=== PATIENT | male | born 1940 | race Caucasian/White ===

== ENCOUNTER → 2017-05-12 | Outpatient (CLI) | payer OTHER, MEDICARE | LOC: BHLMT 13:15 | PROVIDERS: ATTEND Internal Medicine Interventional Cardiology | DX: I25.10 Atherosclerotic heart disease of native coronary artery without angina pectoris (principal); I10 Essential (primary) hypertension; I35.0 Nonrheumatic aortic (valve) stenosis | CPT/HCPCS: 93005-PO ==

== ENCOUNTER 2017-08-21 13:02 | Day surgery (SDC) | payer OTHER, MEDICARE ==
[2017-08-21] MEDS ORDERED: diphenhydrAMINE 25 MG CAP PO ONE ×2 (13:17→13:46)
[2017-08-21] MEDS ORDERED: DIAZEPAM 5 MG TAB PO ONE (13:17)
[2017-08-21] MEDS ORDERED: FAMOTIDINE 20 MG TAB PO ONE (13:17)
[2017-08-21] MEDS ORDERED: ASPIRIN EC 325 MG TAB PO ONE ×2 (13:17→13:46)
[2017-08-21] MEDS ORDERED: NS 1,000 ML IV ONE (13:17)
[2017-08-21 13:46] LABS: % IMMATURE GRANULYOCYTES 0.3 % (0.0-1.1); ABSOLUTE IMMATURE GRANULOCYTES 0.01 10^3/uL (0.00-0.10); ADD DIFF? NO; ADD MORPH? NO; ADD SCAN? NO; ATYPICAL LYMPHOCYTE FLAG 30 (0-99); FRAGMENT RBC FLAG 0 (0-99); HEMATOCRIT 42.1 % (40.0-51.0); HEMOGLOBIN 14.3 g/dL (13.7-17.5); LEFT SHIFT FLG 0 (0-99); LIPEMIA HEMOLYSIS FLAG 90 (0-99); MEAN CELL HEMOGLOBIN 30.4 pg (27.9-34.1); MEAN CELL VOLUME 89.6 fL (81.5-99.8); MEAN PLATELET VOLUME 9.2 fL (8.7-11.7); PLATELET CLUMPS FLAG 0 (0-99); PLATELET COUNT 145 10^3/uL (150-400); RED CELL DISTRIBUTION WIDTH 12.9 % (11.5-15.2)
[2017-08-21] MEDS ORDERED: FAMOTIDINE 20 MG TAB ONE (13:46)
[2017-08-21] MEDS ORDERED: DIAZEPAM 5 MG TAB ONE (13:46)
[2017-08-21 13:55] LABS: INR 0.98 (0.83-1.16); PROTIME(PATIENT) 12.9 SEC (12.0-15.0)
--- NOTE | 2017-08-21 14:05 | CPEKG ---
Heart Rate: 77 RR Interval: 779 P-R Interval: 152 QRSD Interval: 100 QT Interval: 436 QTC Interval: 494 P [place]: 63 QRS [place]: -12 T Wave [place]: 24 EKG Severity - ABNORMAL ECG - EKG Impression: SINUS RHYTHM EKG Impression: MULTIPLE ATRIAL PREMATURE COMPLEXES EKG Impression: BORDERLINE PROLONGED QT INTERVAL Electronically Signed By: Hever Lyn 21-Aug-2017 18:23:24
[2017-08-21 14:07] LABS: ANION GAP 12 mEq/L (8-16); CARBON DIOXIDE 25 mEq/l (22-31); CHLORIDE 103 mEq/L (97-110); CHOLESTEROL 156 mg/dL (140-220); CHOLESTEROL/HDL RATIO 2.52 RATIO (1.00-4.97); GLOMERULAR FILTRATION RATE > 60; GLUCOSE 109 mg/dL (70-100); HIGH DENSITY LIPOPROTEIN 62 mg/dL (40-65); LDL/HDL RATIO 0.92 RATIO (1.00-3.64); LOW DENSITY LIPOPROTEIN 57 mg/dL (80-100); MAGNESIUM 1.8 mg/dL (1.6-2.3); NON-HIGH DENSITY LIPOPROTEIN 94 mg/dL (90-129); SODIUM 140 mEq/L (134-144); TRIGLYCERIDE 186 mg/dL (40-150); VERY LOW DENSITY LIPOPROTEINS 37 mg/dL (8-25)
[2017-08-21] MEDS ORDERED: LIDOCAINE 1% 300 MG/30 ML SDV ONE (14:34)
[2017-08-21] MEDS ORDERED: MIDAZOLAM 2 MG/2 ML VIAL ONE ×3 (14:34→15:05)
[2017-08-21] MEDS ORDERED: fentaNYL 100 MCG/2 ML INJ ONE (14:34)
--- NOTE | 2017-08-21 14:34 | PDHPUP ---
History & Physical Update H&P update statement: This history and physical update is based on an assessment of the patient which was completed after admission or registration (within 24 hours), but prior to the surgery/procedure. H&P update: H&P reviewed & patient examined, no change in patient's condition since H&P completed
[2017-08-21] MEDS ORDERED: IOPAMIDOL (ISOVUE-370) 150 ML BTL IV ONE (14:35)
--- NOTE | 2017-08-21 14:36 | PDPROPOC ---
Sedation Plan of Care Sedation Plan of Care: vital signs stable ASA Classification: ASA 1 Planned drugs: fentanyl, midazolam Mallampati Score: Class 1 Mallampati Reference Image: Patient passed 3-3-2 rule?: Yes
[2017-08-21] MEDS ORDERED: HYDROCODONE/APAP 5/325 TAB PO PRN (15:45)
[2017-08-21] MEDS ORDERED: ATROPINE SULFATE 1 MG/10 ML SYR IVP PRN (15:45)
[2017-08-21] MEDS ORDERED: NITROGLYCERIN 0.4 MG BTL SL PRN (15:45)
[2017-08-21] MEDS ORDERED: OXYCODONE/APAP 5/325 TAB PO PRN (15:45)
[2017-08-21] MEDS ORDERED: ONDANSETRON 4 MG/2 ML VIAL IVP PRN (15:45)
--- NOTE | 2017-08-21 15:53 | PDDXCAT ---
Diagnostic Cath Note - . 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 LAD: Mid-LAD with 60-70% lesion immediately proximal to LAD-Diagonal bifurcation. Large first diagonal branch with patent stent proximally. LCX: Proximal to mid-circumflex with patent stent; otherwise mild irregularities. 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 LVEF: Stenotic aortic valve not crossed. - Findings-Right Heart Catheterization RA: 10 mmHg RV: 38/8 mmHg PA: 36/20/24 mmHg O2 sat 70.5% PAOP: 12 mmHg AO: 128/70/92 mmHg O2 sat 94.5% Estimated blood loss: <50ml Closure method: Angioseal Assessment: 1) Known moderate to severe aortic stenosis by echo. 2) CAD as described above. 3) Borderline right heart pressures. Plan: Will present at our weekly case conference for consideration of aortic valve replacement and coronary bypass grafting.
== END 2017-08-21 18:37 | disposition home or self-care (01) ==
LOC: FCATH 13:02
PROVIDERS: ATTEND Internal Medicine Interventional Cardiology
DX: I35.0 Nonrheumatic aortic (valve) stenosis (principal); I25.10 Atherosclerotic heart disease of native coronary artery without angina pectoris; I10 Essential (primary) hypertension; E78.00 Pure hypercholesterolemia, unspecified
CPT/HCPCS: 93005; 93456; C1769; C1760; J1644; J2250; J3010; Q9967

== ENCOUNTER → 2017-09-17 | Outpatient (CLI) | payer OTHER, MEDICARE | LOC: FCPNEURO 21:30 | PROVIDERS: ATTEND Psychiatry & Neurology Sleep Medicine | DX: G47.31 Primary central sleep apnea (principal); G47.33 Obstructive sleep apnea (adult) (pediatric); G47.61 Periodic limb movement disorder ==

== ENCOUNTER → 2017-10-21 | Outpatient (CLI) | payer OTHER, MEDICARE | LOC: BHFA 16:15 | PROVIDERS: ATTEND Internal Medicine Cardiovascular Disease | DX: I35.0 Nonrheumatic aortic (valve) stenosis (principal) ==

== ENCOUNTER 2017-10-30 12:31 | Day surgery (SDC) | payer OTHER, MEDICARE ==
[2017-10-30] MEDS ORDERED: fentaNYL 100 MCG/2 ML INJ IVP ONE (12:34)
[2017-10-30] MEDS ORDERED: BENZOCAINE UNIT DOSE SPRAY HURRICAINE MM ONE (12:34)
[2017-10-30] MEDS ORDERED: NS 500 ML IV ONE (12:34)
[2017-10-30] MEDS ORDERED: MIDAZOLAM 2 MG/2 ML VIAL IVP ONE (12:34)
[2017-10-30] MEDS ORDERED: PROPOFOL 200 MG/20 ML VIAL ONE ×2 (13:39)
[2017-10-30] MEDS ORDERED: LIDOCAINE 1% 5 ML SDV ONE (13:40)
[2017-10-30] MEDS ORDERED: SUCCINYLCHOLINE CHLORIDE 200 MG/10 ML SYR IVP ONE (13:40)
--- NOTE | 2017-10-30 14:25 | POSTANESTH ---
Post Anesthetic Evaluation Cardiovascular Status: Similar to Pre-Op Cond Respiratory Status: Similar to Pre-op Cond. Level of Consciousness/Mental Status: Mildly Sleepy, Arousable Pain Control: Adequate, Prn Tx Ordered Nausea/Vomiting Control: Adequate, Prn Tx Ordered Complications Possibly Related to Anesthesia: None Noted
--- NOTE | 2017-10-30 14:25 | PDANEPAE ---
ANE Past Medical History - Cardiovascular History Hx Hypertension: Yes Hx Arrhythmias: Yes Hx Chest Pain: Yes Hx Coronary Artery / Peripheral Vascular Disease: Yes Hx CHF / Valvular Disease: Yes Cardiovascular History Comment: Aortic stenosis - Pulmonary History Hx Sleep Apnea: Yes ANE Review of Systems Review of Systems: ANE Patient History - Allergies Allergies/Adverse Reactions: No Known Allergies Allergy (Unverified 08/15/17 10:43) - Home Medications Home Medications: Aspirin [Aspirin 81mg (*)] 81 mg PO DAILY 08/15/17 [Last Taken Unknown] Atorvastatin Calcium [Lipitor 40 mg (*)] 80 mg PO DAILY 08/15/17 [Last Taken Unknown] Doxazosin Mesylate [Cardura 4 MG (*)] 8 mg PO DAILY 08/15/17 [Last Taken Unknown ] Ezetimibe [Zetia 10 MG (*)] 10 mg PO DAILY 08/15/17 [Last Taken Unknown] Hydrochlorothiazide [HCTZ (*)] 25 mg PO DAILY 08/15/17 [Last Taken Unknown] Hydrocodone/APAP 5/325 [[place] 5/325 (*)] 1 tab PO TID PRN 08/15/17 [Last Taken Unknown] Losartan Potassium [Cozaar 50 mg (*)] 100 mg PO DAILY 08/15/17 [Last Taken Unknown] Multivitamins [Multivitamin (*)] 1 each PO DAILY 08/15/17 [Last Taken Unknown] Niacin [Niacin 500 mg (*)] 500 mg PO DAILY 08/15/17 [Last Taken Unknown] Omeprazole [Prilosec 20 mg] 20 mg PO DAILY 08/15/17 [Last Taken Unknown] Potassium Cl [Klor-Con 10 meq (RX)] 10 meq PO DAILY 08/15/17 [Last Taken Unknown ] Sildenafil Citrate [Viagra 50 MG (*)] 100 mg PO DAILY PRN 08/15/17 [Last Taken Unknown] Varenicline Tartrate [Chantix 1MG (*)] 1 mg PO BID 08/15/17 [Last Taken Unknown] amLODIPine BESYLATE [Norvasc 5 mg (*)] 5 mg PO DAILY 08/15/17 [Last Taken Unknown] - Smoking Hx Smoking Status: Current every day smoker ANE Labs/Vital Signs - Vital Signs Height: 178 cm Weight: 108.9 kg ANE Physical Exam - Airway Neck exam: decreased ROM Mallampati Score: Class 3 Mouth exam: normal dental/mouth exam - Pulmonary Pulmonary: reduced air movement - Cardiovascular Cardiovascular: regular rate and rhythym - ASA Status ASA Status: III ANE Anesthesia Plan Anesthesia Plan: GA with mask, MAC Urgent/Emergent Case: Lokesh warren completed preop but documented later for safe timely pt care
--- NOTE | 2017-10-30 16:31 | ECHO ---
[email or web address] [place] [id number] Main: [phone] Fax: Transesophageal Echocardiography Name: FABIÁN AYUOB MR#: [id number] Study Date: 10/30/2017 Study Time: 12:52 PM Date of : 1940 Age: 77 year(s) Height: ( ) Weight: ( ) BSA: Gender: Male Examination: LISA Indication: Eval aortic valve Image Quality: Contrast: Requested by: Tisha Blanca Heart Rate: Rhythm: BP: / Procedure Staff Editor [employer]: Delmy Monge Reading Physician: Rosario Nguyen Requesting Provider: Benito García LISA Exam Details Conclusions: Normal size left ventricle. Normal global systolic LV function. An agitated saline study was performed and was negative for intracardiac shunting. No thrombus in left appendage. There is no mitral valve regurgitation. No mitral stenosis is present. The aortic valve is tri-leaflet. Moderate-severe aortic valve stenosis. Trivial to mild aortic valve regurgitation. AV max PG is 54mmHG. AV mean PG is 35mmHG. ABELARDO by the continuity equation is 0.82 cm2. ABELARDO by planimetry is 1.06cm2. There is Grade 2 aorta plaque. Measurements: Chambers Valvular Assessment AV/MV Valvular Assessment TV/PV Normal Normal Normal Name Value Range Name Value Range Name Value Range LVOTd 2.0 cm 2.0 cm mm AV meanP mmHg ( - ) LVOT Vmax: 0.83 m/s (0.7 m/s-1.1 m/s) ABELARDO (VTI): 0.8 cm ( - ) ABELARDO (2D): 1.3 cm2 ( - ) MV E Vmax: 0.78 m/s ( - ) MV A Vmax: 1.20 m/s ( - ) MV E/A: 0.65 ( - ) Patient: FABIÁN AYOUB Study Date: 10/30/2017 Page 1 of 2 12:52 PM MV meanP mmHg ( - ) MVA (Vmax): 3.0 m/s ( - ) Additional Measurements: Valvular Assessment AV/MV Name Value MV VTI: 24.40 cm Findings: Left Ventricle: Normal size left ventricle. Normal global systolic LV function. Left Atrium: An agitated saline study was performed and was negative for intracardiac shunting. Left Atrial Appendage: No thrombus in left appendage. Mitral Valve: Moderate mitral valve leaflet calcification is present. There is no mitral valve regurgitation. No mitral stenosis is present. Aortic Valve: The aortic valve is tri-leaflet. Moderate-severe aortic valve stenosis. Trivial to mild aortic valve regurgitation. AV max PG is 54mmHG. AV mean PG is 35mmHG. ABELARDO by the continuity equation is 0.82 cm2. ABELARDO by planimetry is 1.06cm2. Tricuspid Valve: The tricuspid valve appears normal. Aorta: There is Grade 2 aorta plaque. l1n (No Signature Object) Patient: FABIÁN AYOUB Study Date: 10/30/2017 Page 2 of 2 12:52 PM [id number]
== END 2017-10-30 15:29 | disposition home or self-care (01) ==
LOC: FCATH 12:31
PROVIDERS: ATTEND Internal Medicine Gastroenterology
PROC: B245ZZ4 Ultrasonography of Left Heart, Transesophageal (ICD-10-PCS; principal; 2017-10-30)
DX: I35.0 Nonrheumatic aortic (valve) stenosis (principal); I25.10 Atherosclerotic heart disease of native coronary artery without angina pectoris; I10 Essential (primary) hypertension; E78.2 Mixed hyperlipidemia; E66.9 Obesity, unspecified; Z68.34 Body mass index [BMI] 34.0-34.9, adult; G47.33 Obstructive sleep apnea (adult) (pediatric); M48.061 Spinal stenosis, lumbar region without neurogenic claudication; F17.200 Nicotine dependence, unspecified, uncomplicated; F11.20 Opioid dependence, uncomplicated; Z85.46 Personal history of malignant neoplasm of prostate; Z95.5 Presence of coronary angioplasty implant and graft; Z96.651 Presence of right artificial knee joint; Z98.1 Arthrodesis status
CPT/HCPCS: J0330; J2704

== ENCOUNTER 2017-11-03 07:49 | Observation (INO) | payer OTHER, MEDICARE ==
[2017-11-03] MEDS ORDERED: DIAZEPAM 5 MG TAB PO ONE (07:55)
[2017-11-03] MEDS ORDERED: ASPIRIN EC 325 MG TAB PO ONE ×2 (07:55→08:21)
[2017-11-03] MEDS ORDERED: diphenhydrAMINE 25 MG CAP PO ONE ×2 (07:55→08:21)
[2017-11-03] MEDS ORDERED: FAMOTIDINE 20 MG TAB PO ONE (07:55)
[2017-11-03] MEDS ORDERED: NS 1,000 ML IV ONE (07:55)
--- NOTE | 2017-11-03 08:17 | CPEKG ---
Heart Rate: 79 RR Interval: 759 P-R Interval: 148 QRSD Interval: 92 QT Interval: 392 QTC Interval: 450 P [place]: 40 QRS [place]: -13 T Wave [place]: 38 EKG Severity - OTHERWISE NORMAL ECG - EKG Impression: SINUS ARRHYTHMIA, RATE 68-94 Electronically Signed By: Yobani Michelle 03-Nov-2017 15:31:49
[2017-11-03] MEDS ORDERED: FAMOTIDINE 20 MG TAB ONE (08:21)
[2017-11-03] MEDS ORDERED: DIAZEPAM 5 MG TAB ONE (08:22)
[2017-11-03 08:38] LABS: PLATELET COUNT 166 10^3/uL (150-400)
[2017-11-03 08:48] LABS: INR 0.96 (0.83-1.16)
--- NOTE | 2017-11-03 09:18 | PDPROPOC ---
Sedation Plan of Care Sedation Plan of Care: mental status noted, patient educated of risks, benefits , alternatives, patient can tolerate sedation ASA Classification: ASA 2 Planned drugs: fentanyl, midazolam Mallampati Score: Class 2 Mallampati Reference Image: Patient passed 3-3-2 rule?: Yes
[2017-11-03] MEDS ORDERED: CLOPIDOGREL BISULFATE 75 MG TAB PO ONE (09:30)
[2017-11-03] MEDS ORDERED: LIDOCAINE 1% 300 MG/30 ML SDV ONE (09:31)
[2017-11-03] MEDS ORDERED: fentaNYL 100 MCG/2 ML INJ ONE (09:31)
[2017-11-03] MEDS ORDERED: MIDAZOLAM 2 MG/2 ML VIAL ONE ×2 (09:32)
[2017-11-03] MEDS ORDERED: IOPAMIDOL (ISOVUE-370) 150 ML BTL IV ONE (09:32)
[2017-11-03] MEDS ORDERED: BIVALIRUDIN 250 MG/5 ML VIAL IV ONE (09:37)
[2017-11-03] MEDS ORDERED: NITROGLYCERIN 1,500 MCG/15 ML VIAL MISC ONE (10:09)
[2017-11-03] MEDS ORDERED: TEMAZEPAM 15 MG CAP PO PRN (10:53)
[2017-11-03] MEDS ORDERED: ONDANSETRON 4 MG/2 ML VIAL IVP PRN (10:53)
[2017-11-03] MEDS ORDERED: OXYCODONE/APAP 5/325 TAB PO PRN (10:53)
[2017-11-03] MEDS ORDERED: ATROPINE SULFATE 1 MG/10 ML SYR IVP PRN (10:53)
[2017-11-03] MEDS ORDERED: LORazepam 2 MG/ML INJ IVP PRN (10:53)
[2017-11-03] MEDS ORDERED: SILDENAFIL CITRATE 50 MG TAB PO PRN (10:56)
--- NOTE | 2017-11-03 11:23 | CPIP ---
[f rep st] INVASIVE CARDIAC PROCEDURE DATE OF PROCEDURE: 11/03/2017 INDICATION FOR PROCEDURE: Coronary artery disease, pre TAVR workup. PROCEDURE: 1. Nonselective left groin sheathogram. 2. Left coronary artery angiography. 3. Percutaneous coronary intervention of proximal left anterior descending artery utilizing Synergy 3.5 x 12 mm drug-eluting stent. BRIEF HISTORY: This is a 77-year-old male with history of severe aortic stenosis, coronary artery di sease. The patient had been evaluated by Dr. Everett for possible CABG/open AVR, but due to multiple c omorbid issues, mainly being obesity and chronic lung disease, the patient was deemed to be a suitabl e candidate for TAVR. After discussion with the patient, we decided to proceed with PCI of his proxi mal LAD with plans for TAVR in the near future. DESCRIPTION OF PROCEDURE: The patient was brought to [facility] where the left groin was prepped and draped in a sterile fashion. Using lidocaine, a short 6-[place] sheath was placed in the left femoral arter y, verified angiographically. Through this 6-[place] sheath, an EBU 3.5 guide catheter was advanced. The patient had been administered 600 mg of Plavix p.o. prior to the case as well as started on an A ngiomax bolus and drip. The left coronary artery revealed a high-grade 70% proximal lesion going int o a healthy LAD. There was a large diagonal artery also coming off distal to the lesion which had be en extensively stented, which was widely patent. There was a stent to the proximal left circumflex a rtery, which was widely patent. The mid left circumflex artery distal to the stent had 40% tubular d isease but no high-grade obstruction. The RCA from prior angiograms, had been known to be a partiall y recanalized DOLLY OPERATOR. There were collaterals coming off the left coronary artery feeding the distal RPD A. This is a codominant circulation. At this time, the Choice PT wire was placed down the LAD. Pre dilatation commenced with a 3.0 x 12 compliant balloon at 10 atmospheres. After this was performed, we then proceeded with stenting of this vessel with 3.5 x 12 mm Synergy stent. This deployed just be fore the bifurcation of the diagonal artery and the LAD and deployed at 12 atmospheres. It was then post dilated with a 3.5 x 8 noncompliant balloon at 15 atmospheres. After this was performed, angiog haley was obtained and showed excellent patency of the stented area. There was no impingement on the d iagonal artery and this can be successfully rewired if needed to be. At this time, this was verified in orthogonal views. The wire was removed. The guide catheter was removed over an 0.035 wire. The left groin was sutured in place. Patient tolerated the procedure well with no complications. IMPRESSION: Successful percutaneous coronary intervention of high-grade proximal left anterior desce nding artery disease with Synergy 3.5 x 12 stent. PLAN: The patient will have his sheath discontinued in 2 hours time. He will obtain CTs of the ches t, abdomen, pelvis, as well as carotid ultrasound in anticipation for TAVR in the next 2 weeks. /[id number]/MODL
--- NOTE | 2017-11-03 15:58 | ASMTCMCOM ---
CM Note CM Note Notes: 11/03/2017 Case Management Note Reviewed chart. Pt was admitted for PCI of proximal LAD to prepare for possible future TAVR. There are no PT or OT evals ordered at this time. Case Management d/c poc: anticipating home independent with follow up as directed. Case Management to follow for further d/c needs. Date Signed: 11/03/2017 03:58 PM Electronically Signed By:Jennifer Christensen RN
[2017-11-03] MEDS: HYDROCODONE/APAP 5/325 TAB PO PRN ×2 (16:09→18:05)
[2017-11-03] MEDS ORDERED: IOPAMIDOL (ISOVUE 370) 100 ML BTL IV ONE (17:12)
[2017-11-04 04:23] LABS: PLATELET COUNT 156 10^3/uL (150-400)
[2017-11-04 07:36] VITALS: BP 124/67; PULSE 79; RESP 16; TEMP 97.9; O2SAT 90
[2017-11-04] MEDS: HYDROCODONE/APAP 5/325 TAB PO PRN (07:51)
--- NOTE | 2017-11-04 08:01 | PDCARPN ---
Cardiology Progress Note Chief Complaint: SOB Assessment/Plan: Assessment: s/p PCI severe Plan: 11/04/17 07:58 Doing well d/c home today f/u in 1 week d/c on plavix plan for TAVR on 11/17 Subjective: doing well Time Spent With Patient: 25 min Objective: Vital Signs (8 Hrs) Temp Pulse Resp BP Pulse Ox 11/04/17 07:33 36.6 C 79 16 124/67 H 90 L 11/04/17 03:45 36.9 C 74 13 151/77 H 91 L Intake/Output (24 Hrs) 11/03/17 11/04/17 11/05/17 05:59 05:59 05:59 Intake Total 1110 Output Total 1895 Balance -785 Intake: Oral (ml) 460 IV Intake (ml) 650 Output: Urine (ml) 189 Urinal 189 Other: Weight 106.6 kg Result Diagrams: 11/04/17 03:42 11/04/17 03:42 - Physical Exam Constitutional: healthy appearing Eyes: PERRL Ears, Nose, Mouth, Throat: moist mucous membranes Cardiovascular: regular rate and rhythm, systolic murmur Peripheral Pulses: 1+: femoral (R), femoral (L) Respiratory: clear to auscultate bilat Gastrointestinal: normoactive bowel sounds Genitourinary: no suprapubic tenderness Skin: no rashes Musculoskeletal: no muscular tenderness Neurologic: AAOx3 Psychiatric: cooperative Lymph, Heme, Immunologic: no lymphadenopathy ICD10 Worksheet Patient Problems: Problems Problem Status Onset Aortic stenosis Acute CAD (coronary artery disease) Acute - ICD10 Problem Qualifiers (1) Aortic stenosis Qualifiers: Cardiac valve disease etiology: nonrheumatic Qualified Code(s): I35.0 - Nonrheumatic aortic (valve) stenosis (2) CAD (coronary artery disease) Qualifiers: Coronary Disease-Associated Artery/Lesion type: [place] artery Resighini vs. transplanted heart: [place]hoe heart Associated angina: with stable angina Qualified Code(s): I25.118 - Atherosclerotic heart disease of [place] coronary artery with other forms of angina pectoris
--- NOTE | 2017-11-04 08:22 | GDS ---
[f rep st] DISCHARGE SUMMARY DISCHARGE DIAGNOSES: Coronary artery disease, aortic stenosis. HOSPITAL COURSE: Briefly, this is a 77-year-old male with history of COPD, morbid obesity, severe ao rtic stenosis, and coronary artery disease, who underwent elective PCI to the proximal LAD with a Syn ergy 3.5 x 12 mm drug-eluting stent. The patient tolerated the procedure well with no issues. The p jaelyn had been evaluated by Dr. Jackson Everett from CT Surgery prior to this intervention and was deeme d to be an at least intermediate if not high-risk candidate for open heart AVR/CABG. The decision wa s made to proceed with PCI and eventual TAVR for the patient in the next 2 weeks[address] The patient had CT As performed of the chest, abdomen, and pelvis as well as carotid ultrasound. The patient will be di scharged home this morning with his home medications including a new prescription for Plavix. He ming l follow up with me in the office in 1 week's time as well as follow up with a second CT surgery cons ult. If deemed to be suitable for TAVR, we will proceed with this procedure within the next 2-3 week s. I have explained this to the patient. The patient is willing to follow up with the office visit in the upcoming week. /[id number]/MODL
[2017-11-04] MEDS ORDERED: NIACIN 500 MG TAB PO SCH (09:00)
[2017-11-04] MEDS ORDERED: POTASSIUM CL 10 MEQ TAB PO SCH (09:00)
[2017-11-04] MEDS ORDERED: MULTIVITAMINS 1 EACH TAB PO SCH (09:00)
[2017-11-04] MEDS ORDERED: METOPROLOL SUCCINATE XR 50 MG TAB PO SCH (09:00)
[2017-11-04] MEDS ORDERED: LOSARTAN POTASSIUM 50 MG TAB PO SCH (09:00)
[2017-11-04] MEDS ORDERED: ASPIRIN 81 MG CHEWABLE TAB PO SCH (09:00)
[2017-11-04] MEDS ORDERED: PANTOPRAZOLE SODIUM 40 MG TAB PO SCH (09:00)
[2017-11-04] MEDS ORDERED: EZETIMIBE 10 MG TAB PO SCH (09:00)
[2017-11-04] MEDS ORDERED: NON-FORMULARY NEW DRUG (Omeprazole [Prilosec 20 Mg] 20 MG) PO SCH (09:00)
[2017-11-04] MEDS ORDERED: DOXAZOSIN MESYLATE 4 MG TAB PO SCH (09:00)
[2017-11-04] MEDS ORDERED: CLOPIDOGREL BISULFATE 75 MG TAB PO SCH (09:00)
[2017-11-04] MEDS ORDERED: ATORVASTATIN CALCIUM 40 MG TAB PO SCH (09:00)
--- NOTE | 2017-11-04 09:58 | ASMTLACE ---
LACE Length of stay for Answers: Less than 1 day current admission Acuity / Level of Answers: No Care: Did the patient have an inpatient admission? Comorbidities - select Answers: Other all that apply # of Emergency department Answers: 0 visits in the last 6 months Score: 1 Date Signed: 11/04/2017 09:56 AM Electronically Signed By:Jennifer Christensen RN
--- NOTE | 2017-11-04 13:35 | ASDISCHSUM ---
Discharge Information Plan Status:Home with No Needs Medically Cleared to Leave:11/03/2017 Discharge Date:11/04/2017 10:52 AM CM D/C Disposition:Home, Routine, Self-Care ADT D/C Disposition:Home, Routine, Self-Care Projected Discharge Date:11/04/2017 10:52 AM Transportation at D/C: Discharge Delay Reason: Follow-Up Date:11/04/2017 10:52 AM Discharge Slot: Final Diagnosis: Placement Information Patient Contact Information Contact Name:HUONG Relationship:Daughter Address: Work Phone: City: [facility] Phone: State/[facility] Code: Email: Financial Information Financial Class: Primary Plan Desc:MEDICARE OUTPATIENT Primary Plan Number:[id number] Secondary Plan Desc:[employer]/MDR SUPPLEMENT Secondary Plan Number:[id number] Assessment Information [facility] CM Progress Note CM Note CM Note Notes: 11/03/2017 Case Management Note Reviewed chart. Pt was admitted for PCI of proximal LAD to prepare for possible future TAVR. There are no PT or OT evals ordered at this time. Case Management d/c poc: anticipating home independent with follow up as directed. Case Management to follow for further d/c needs. Date Signed: 11/03/2017 03:58 PM Electronically Signed By:Jennifer Christensen RN LACE LACE Length of stay for Answers: Less than 1 day current admission Acuity / Level of Answers: No Care: Did the patient have an inpatient admission? Comorbidities - select Answers: Other all that apply # of Emergency department Answers: 0 visits in the last 6 months Score: 1 Date Signed: 11/04/2017 09:56 AM Electronically Signed By:Jennifer Christensen RN Intervention Information
== END 2017-11-04 10:52 | disposition home or self-care (01) ==
LOC: FCATH 07:49 → F2W 15:10
PROVIDERS: ADMIT Internal Medicine Cardiovascular Disease; ATTEND Internal Medicine Cardiovascular Disease
PROC: 027034Z Dilation of Coronary Artery, One Artery with Drug-eluting Intraluminal Device, Percutaneous Approach (ICD-10-PCS; principal; 2017-11-03)
DX: I25.10 Atherosclerotic heart disease of native coronary artery without angina pectoris (principal); I35.0 Nonrheumatic aortic (valve) stenosis; J44.9 Chronic obstructive pulmonary disease, unspecified; E66.01 Morbid (severe) obesity due to excess calories
CPT/HCPCS: 71275; 74174; 75625; 92928; 93005; 93880; C1725; C1769; C1874; C1887; C9600; J0583; J1644; J2250; J3010; Q9967

== ENCOUNTER 2017-11-17 06:08 | Inpatient (IN) | payer OTHER, MEDICARE ==
--- NOTE | 2017-11-17 06:26 | PDPROPOC ---
Sedation Plan of Care Sedation Plan of Care: mental status noted, patient educated of risks, benefits , alternatives, patient can tolerate sedation ASA Classification: ASA 2 Mallampati Score: Class 2 Mallampati Reference Image: Patient passed 3-3-2 rule?: Yes
[2017-11-17] MEDS ORDERED: PROTAMINE SULFATE 50 MG/5 ML VIAL IVP ONE (06:30)
[2017-11-17] MEDS ORDERED: NA BICARBONATE 50 MEQ/50 ML VIAL ONE (06:30)
[2017-11-17] MEDS ORDERED: CALCIUM CHLORIDE 1 GM/10 ML INJ ONE (06:30)
[2017-11-17] MEDS ORDERED: ALBUMIN 5% 250 ML BOTTLE IV ONE (06:30)
[2017-11-17] MEDS ORDERED: MILRINONE/DEXTROSE/100 ML BAG IV ONE (06:30)
[2017-11-17] MEDS ORDERED: LIDOCAINE 2% 100 MG/5 ML SYR ONE (06:30)
[2017-11-17] MEDS ORDERED: IOPAMIDOL (ISOVUE-370) 150 ML BTL IV ONE (06:30)
[2017-11-17] MEDS ORDERED: ceFAZolin 2 GM/DEXTROSE 100 ML IV ONE (06:30)
[2017-11-17] MEDS ORDERED: HEPARIN 10,000 UNIT/10 ML MDV (1,000 UNIT/ML) ONE (06:31)
[2017-11-17] MEDS ORDERED: methylPREDNISolone SOD SUCC 1 GM/8 ML VIAL ONE (06:31)
[2017-11-17] MEDS ORDERED: AMIODARONE HCL 150 MG/3 ML VIAL ONE (06:31)
[2017-11-17] MEDS ORDERED: ADENOSINE 6 MG/2 ML VIAL ONE (06:31)
[2017-11-17] MEDS ORDERED: CITRATE DEXTROSE SOLN 500 ML BAG ONE (06:31)
[2017-11-17] MEDS ORDERED: ceFAZolin 1 GM VIAL ONE (06:31)
[2017-11-17] MEDS ORDERED: DOPamine/DEXTROSE/250 ML BAG IV ONE (06:31)
[2017-11-17] MEDS ORDERED: niCARdipine/NACL/200 ML BAG IV ONE (06:31)
[2017-11-17] MEDS ORDERED: MAGNESIUM SULFATE 1 GM/2 ML VIAL ONE (06:31)
--- NOTE | 2017-11-17 07:11 | PDANEPAE ---
ANE History of Present Illness here for tavr ANE Past Medical History - Cardiovascular History Hx Hypertension: Yes Hx Arrhythmias: Yes Hx Chest Pain: Yes Hx Coronary Artery / Peripheral Vascular Disease: Yes Hx CHF / Valvular Disease: Yes Cardiovascular History Comment: Aortic stenosis - Pulmonary History Hx COPD: Yes Hx Asthma/Reactive Airway Disease: No Hx Recent Upper Respiratory Infection: No Hx Oxygen in Use at Home: No Hx Sleep Apnea: Yes - Endocrine History Hx Diabetes: No Hypothyroid: No Obesity: moderate - Renal History Hx Renal Disorders: No - Liver History Hx Hepatic Disorders: No - Neurological & Psychiatric Hx Hx Neurological and Psychiatric Disorders: No - Chronic Pain History Chronic Pain: Yes ANE Review of Systems Review of systems is: negative Review of Systems: - Exercise capacity Exercise capacity: <4 METS ANE Patient History - Allergies Allergies/Adverse Reactions: No Known Allergies Allergy (Verified 11/13/17 17:44) - Home Medications Home medications: home medication list seen and reviewed Home Medications: Aspirin [Aspirin 81mg (*)] 81 mg PO DAILY 08/15/17 [Last Taken Unknown] Atorvastatin Calcium [Lipitor 40 mg (*)] 80 mg PO DAILY 08/15/17 [Last Taken Unknown] Doxazosin Mesylate [Cardura 4 MG (*)] 8 mg PO DAILY 08/15/17 [Last Taken Unknown ] Ezetimibe [Zetia 10 MG (*)] 10 mg PO DAILY 08/15/17 [Last Taken Unknown] Hydrocodone/APAP 5/325 [[place] 5/325 (*)] 1 tab PO TID PRN 08/15/17 [Last Taken Unknown] Losartan Potassium [Cozaar 50 mg (*)] 100 mg PO DAILY 08/15/17 [Last Taken Unknown] Multivitamins [Multivitamin (*)] 1 each PO DAILY 08/15/17 [Last Taken Unknown] Niacin [Niacin 500 mg (*)] 500 mg PO DAILY 08/15/17 [Last Taken Unknown] Potassium Cl [Klor-Con 10 meq (RX)] 10 meq PO DAILY 08/15/17 [Last Taken Unknown ] Sildenafil Citrate [Viagra 50 MG (*)] 100 mg PO DAILY PRN 08/15/17 [Last Taken Unknown] Metoprolol Succinate Xr [Toprol Xl 50 mg (*)] 50 mg PO DAILY 10/31/17 [Last Taken Unknown] - NPO status NPO Status: no food or drink >8 hours - Smoking Hx Smoking Status: Current every day smoker ANE Labs/Vital Signs - Vital Signs Vital Signs: reviewed preoperatively; see RN documention for details Height: 177.8 cm Weight: 106.594 kg ANE Physical Exam - Airway Neck exam: FROM Mallampati Score: Class 2 - Pulmonary Pulmonary: no respiratory distress - Cardiovascular Cardiovascular: regular rate and rhythym - ASA Status ASA Status: IV ANE Anesthesia Plan Anesthesia Plan: general endotracheal anesthesia
[2017-11-17] MEDS ORDERED: fentaNYL 100 MCG/2 ML INJ ONE (07:14)
[2017-11-17] MEDS ORDERED: MIDAZOLAM 2 MG/2 ML VIAL ONE (07:15)
[2017-11-17] MEDS ORDERED: PROPOFOL/EMULSION 500 MG/50 ML BOTTLE IV ONE (07:16)
[2017-11-17] MEDS ORDERED: ATROPINE SULFATE 1 MG/10 ML SYR IVP PRN (08:49)
[2017-11-17] MEDS ORDERED: HYDROmorphONE/DILAUDID 1 MG/ML INJ IVP PRN (08:49)
[2017-11-17] MEDS ORDERED: ONDANSETRON DISINTEGRATING 4 MG TAB PO PRN (08:49)
[2017-11-17] MEDS ORDERED: hydrALAZINE 20 MG/ML VIAL IVP PRN (08:49)
[2017-11-17] MEDS ORDERED: ONDANSETRON 4 MG/2 ML VIAL IVP PRN (08:49)
[2017-11-17] MEDS ORDERED: SILDENAFIL CITRATE 50 MG TAB PO PRN (08:50)
[2017-11-17] MEDS ORDERED: HYDROCODONE/APAP 5/325 TAB PO PRN (08:50)
--- NOTE | 2017-11-17 09:46 | POSTANESTH ---
Post Anesthetic Evaluation Cardiovascular Status: Normal, Stable Respiratory Status: Normal, Stable Level of Consciousness/Mental Status: Can Participate in Eval Pain Control: Adequate, Prn Tx Ordered Nausea/Vomiting Control: Adequate, Prn Tx Ordered Complications Possibly Related to Anesthesia: None Noted
[2017-11-17] MEDS: ASPIRIN 81 MG CHEWABLE TAB PO SCH (10:47)
[2017-11-17] MEDS: DOXAZOSIN MESYLATE 4 MG TAB PO SCH (10:48)
[2017-11-17] MEDS: ATORVASTATIN CALCIUM 40 MG TAB PO SCH (10:48)
[2017-11-17] MEDS: CLOPIDOGREL BISULFATE 75 MG TAB PO SCH (10:48)
[2017-11-17] MEDS: EZETIMIBE 10 MG TAB PO SCH (10:49)
[2017-11-17] MEDS: LOSARTAN POTASSIUM 50 MG TAB PO SCH (10:49)
[2017-11-17] MEDS: METOPROLOL SUCCINATE XR 50 MG TAB PO SCH (10:50)
[2017-11-17] MEDS: PANTOPRAZOLE SODIUM 40 MG TAB PO SCH (10:51)
[2017-11-17] MEDS: POTASSIUM CL 10 MEQ TAB PO SCH (10:51)
[2017-11-17] MEDS: NIACIN 500 MG TAB PO SCH (10:51)
[2017-11-17] MEDS: MULTIVITAMINS 1 EACH TAB PO SCH (10:51)
[2017-11-17] MEDS: ACETAMINOPHEN 325 MG TAB PO SCH ×3 (12:18→23:34)
[2017-11-17] MEDS: oxyCODONE IR 5 MG TAB PO PRN ×2 (12:21→22:11)
--- NOTE | 2017-11-17 12:38 | GOP ---
[f rep st] OPERATIVE REPORT DATE OF OPERATION: 11/17/2017 SURGEON: Jackson Everett DO PREOPERATIVE DIAGNOSIS: Critical aortic stenosis with moderate aortic insufficiency. POSTOPERATIVE DIAGNOSIS: Critical aortic stenosis with moderate aortic insufficiency. PROCEDURE PERFORMED: Right common femoral transcatheter aortic valve replacement with a #29 Evolut Pro. FINDINGS: DESCRIPTION OF PROCEDURE: The patient was consented and brought to the medical laboratory technical officer. A time-out was confirmed. Under general anesthetic, both groins were prepped. Access was obtained by Dr. García; please see separate dictations. Appropriate exchanges and catheters were placed across the aortic valve. Initially, a BAV was performed by Dr. García, with me assisting. We then placed the Evolut Pro across the aortic valve under echo and fluoro guidance with a paced rhythm. We were able to successfully deploy the valve with mild aortic insufficiency noted, excellent placement, and no impingement on the mitral valve. There were no conduction disorders. The remainder of the procedure and groins were closed by Dr. García percutaneously. Dopplers were present at the completion of the procedure. The patient was extubated and returned to ICU in stable condition. CO-SURGEON: Benito García MD /[id number]/MODL MTDD
--- NOTE | 2017-11-17 13:13 | CPIP ---
[f rep st] INVASIVE CARDIAC PROCEDURE DATE OF PROCEDURE: 11/17/2017 ADDITIONAL REFERRING PHYSICIAN: Rosario Nguyen MD. PROCEDURE: 1. Nonselective left groin sheathogram. 2. Nonselective right groin sheathogram with placement of 16-Panamanian [place] sheath after triple Perclos e placements. 3. A 6-Panamanian sheath in left common femoral vein. 4. Temporary pacemaker placed in right ventricle. 5. Aortic root angiography. 6. Left heart catheterization. 7. Balloon aortic valvuloplasty. 8. Placement of Medtronic CoreValve Evolut PRO 29 mm valve via the transfemoral route. BRIEF HISTORY: This is a 77-year-old male with history of morbid obesity, COPD, coronary artery dise ase. He was deemed to be a suitable candidate for TAVR from CT Surgery. DESCRIPTION OF PROCEDURE: The patient was consented for a transfemoral TAVR for today. He was danna t to [facility], where the patient was electively intubated and LISA performed by Dr. Rosario Nguyen. A 6-Panamanian sheath was placed in the left common femoral vein with temporary pacemaker placed in the right ventri flores, an 8-Panamanian sheath in left common femoral artery, verified angiographically, and a 6-Panamanian cuellar th in the right femoral artery, upsized to an 8-Panamanian sheath after triple Perclose placements. Alexa ent was then upsized to a 16-Panamanian sheath. Patient was administered a total of 11,000 heparin during the case. Aortic valve was crossed with an AL1 catheter and straight stiff Glidewire, switched out for a pigtai l catheter. Of note, patient did receive 1 g of Ancef prior to the start of the case. The pigtail cat heter was removed over the Confida wire. Balloon valvuloplasty commenced with a Tyshak 20 x 60 balloo n with a pacing rate of 180 beats per minute. After this was performed, the balloon was removed. The Medtronic CoreValve Evolut PRO 29 mm valve was then advanced and deployed successfully across the kody ve. There was mild paravalvular leak noted. Given the patient's hemodynamic stability, as well as the presence of a very large calcified area in the noncoronary cusp, we decided that post PAV would pote ntially result in a complication. We decided to leave the mild paravalvular leak alone. The wire was removed. The right groin was closed with triple Perclose placements as well as 8-Panamanian Angio-Seal. T he left groin was closed with 8-Panamanian Angio-Seal. The 6-Panamanian sheath was closed with manual pressur e. Patient tolerated procedure well, no complications. IMPRESSION: Successful placement of Medtronic CoreValve Evolut PRO 29 mm valve via the transfemoral route. PLAN: The patient will be admitted to ICU. Further orders following clinical course. /[id number]/MODL
[2017-11-18 04:53] LABS: PLATELET COUNT 129 10^3/uL (150-400)
[2017-11-18] MEDS: ACETAMINOPHEN 325 MG TAB PO SCH ×4 (06:05→22:51)
--- NOTE | 2017-11-18 07:10 | PDCARPN ---
Cardiology Progress Note Chief Complaint: SOB Assessment/Plan: Assessment: s/p TAVR Plan: 11/18/17 07:08 doing great transfer to step down check echo continue plavix Subjective: doing great Reviewed/Discussed With: multidisciplinary team Time Spent With Patient: 25 min Objective: Vital Signs (8 Hrs) Temp Pulse Resp BP Pulse Ox 11/18/17 06:00 58 L 12 119/47 L 97 11/18/17 04:00 37.4 C 69 15 108/37 L 95 11/18/17 02:00 65 16 111/50 L 95 11/18/17 00:00 74 18 118/53 L 95 Intake/Output (24 Hrs) 11/17/17 11/18/17 11/19/17 05:59 05:59 05:59 Intake Total 2420 250 Output Total 1460 100 Balance 960 150 Intake: Oral (ml) 1970 250 IV Intake (ml) 450 Output: Urine (ml) 1460 100 Urinal 1460 100 Other: Weight 106.594 kg Result Diagrams: 11/18/17 04:40 11/18/17 04:40 - Physical Exam Constitutional: healthy appearing Eyes: PERRL Ears, Nose, Mouth, Throat: moist mucous membranes Cardiovascular: regular rate and rhythm Peripheral Pulses: 1+: femoral (R), femoral (L) Respiratory: clear to auscultate bilat Gastrointestinal: normoactive bowel sounds Genitourinary: no suprapubic tenderness Skin: no rashes Musculoskeletal: no muscular tenderness Neurologic: AAOx3 Psychiatric: cooperative Lymph, Heme, Immunologic: no lymphadenopathy ICD10 Worksheet Patient Problems: Problems Problem Status Onset Aortic stenosis Acute CAD (coronary artery disease) Acute
--- NOTE | 2017-11-18 08:48 | CPEKG ---
Heart Rate: 68 RR Interval: 882 P-R Interval: 180 QRSD Interval: 92 QT Interval: 432 QTC Interval: 460 P [place]: 61 QRS [place]: 4 T Wave [place]: 56 EKG Severity - NORMAL ECG - EKG Impression: SINUS RHYTHM Electronically Signed By: Benito García 18-Nov-2017 11:54:01
[2017-11-18] MEDS: LOSARTAN POTASSIUM 50 MG TAB PO SCH (09:24)
[2017-11-18] MEDS: CLOPIDOGREL BISULFATE 75 MG TAB PO SCH (09:25)
[2017-11-18] MEDS: MULTIVITAMINS 1 EACH TAB PO SCH (09:25)
[2017-11-18] MEDS: ATORVASTATIN CALCIUM 40 MG TAB PO SCH (09:25)
[2017-11-18] MEDS: NIACIN 500 MG TAB PO SCH (09:25)
[2017-11-18] MEDS: DOXAZOSIN MESYLATE 4 MG TAB PO SCH (09:25)
[2017-11-18] MEDS: EZETIMIBE 10 MG TAB PO SCH (09:25)
[2017-11-18] MEDS: ASPIRIN 81 MG CHEWABLE TAB PO SCH (09:25)
[2017-11-18] MEDS: METOPROLOL SUCCINATE XR 50 MG TAB PO SCH (09:25)
[2017-11-18] MEDS: PANTOPRAZOLE SODIUM 40 MG TAB PO SCH (09:26)
[2017-11-18] MEDS: POTASSIUM CL 10 MEQ TAB PO SCH (09:26)
--- NOTE | 2017-11-18 10:31 | ECHO ---
[email or web address] [address] [address] Main: [phone] Fax: Transthoracic Echocardiogram Name: FABIÁN AYOUB MR#: [id number] Study Date: 11/18/2017 Study Time: 07:56 AM Date of : 1940 Age: 77 year(s) Height: 177.8 cm (70 in.) Weight: 106.6 kg (235 lb.) BSA: 2.24 m2 Gender: Male Examination: Echo Indication: Post TAVR Image Quality: Technically Difficult Contrast: Requested by: Benito García BP: 119 mmHg/47 mmHg Heart Rate: Rhythm: Indication: Post TAVR Procedure Staff Turbine Subassembler: Delmy Monge RDCS Reading Physician: Benito García Requesting Provider: Conclusions: Normal global systolic LV function. The ejection fraction is estimated to be 60-65 %. Moderate mitral valve leaflet calcification is present. Mild mitral valve regurgitation is present. AV Core valve in place. AV mean PG is 10mmHG. Mild-moderate octavia-valvular leak.. Mild tricuspid regurgitation is present. Measurements: Chambers Valvular Assessment AV/MV Valvular Assessment TV/PV Normal Normal Normal Name Value Range Name Value Range Name Value Range IVSd (2D): 0.9 cm (0.6 cm-1.1 AV Vmax: 2.12 m/s (1 m/s-1.7 TR Vmax: 2.67 mm/s ( - ) cm) m/s) TR PGmax: 29 mmHg ( - ) LVDd (2D): 5.8 cm (4.2 cm-5.9 AV maxP mmHg ( - ) syst. PAP: 34 mmHg ( - ) cm) AV meanP mmHg ( - ) LVDs (2D): 3.1 cm (2.1 cm-4 LVOT Vmax: 0.85 m/s (0.7 m/s-1.1 cm) m/s) LVPWd (2D): 1.2 cm (0.6 cm-1 ABELARDO (Vmax): 1.7 cm2 ( - ) cm) ABELARDO (VTI): 1.8 cm ( - ) LVOTd 2.3 cm 2.3 cm mm AR (PHT): 438 ms ( - ) LVEF (MOD4): 60 % (>=55 %) MV maxP mmHg ( - ) EF Range: 60-65 % MV meanP mmHg ( - ) MVA (Vmax): 1.6 m/s ( - ) Continued Measurements: Chambers Valvular Assessment AV/MV Valvular Assessment TV/PV Name Value Name Value Name Value LADs: 5.4 cm MV VTI: 56.20 cm CVP (est.): 5 mmHg Patient: FABIÁN AYOUB Study Date: 11/18/2017 Page 1 of 2 07:56 AM LADs Lon.0 cm AR Vmax: 4.58 cm/s LA Area: 37.3 cm2 Additional Vessels Name Value Ao Ascendin.8 cm Findings: Left Ventricle: Normal size left ventricle. No LV hypertrophy. Normal global systolic LV function. The ejection fraction is estimated to be 60-65 %. No regional wall motion abnormality. Right Ventricle: Normal size right ventricle. Left Atrium: The left atrium is mildly dilated. Right Atrium: The right atrium is normal in size. Mitral Valve: Moderate mitral valve leaflet calcification is present. Mild mitral valve regurgitation is present. MV mean PG is 3mmHG.. Aortic Valve: AV Core valve in place. AV mean PG is 10mmHG. Mild-moderate octavia-valvular leak.. Tricuspid Valve: The tricuspid valve is normal in appearance and function. Mild tricuspid regurgitation is present. RVSP is normal.. Pulmonic Valve: The pulmonic valve is normal in appearance and function. Aorta: The aorta is normal. Pericardium: No pericardial effusion. There is pericardial fat. (No Signature Object) Patient: FABIÁN AYOUB Study Date: 11/18/2017 Page 2 of 2 07:56 AM [id number]
--- NOTE | 2017-11-18 15:43 | ASMTCMCOM ---
CM Note CM Note Notes: 77 year old male admitted for CAD, . He has a hx of HTN, IBS, HLD, ESTELA, Spinal stenosis, Smoker. Patient to have a TAVR procedure. Therapies to eval. CM to follow. Date Signed: 11/18/2017 03:42 PM Electronically Signed By:Loan Alaniz LCSW
[2017-11-18] MEDS: oxyCODONE IR 5 MG TAB PO PRN (22:54)
[2017-11-18 23:04] VITALS: TEMP 98.7
[2017-11-19 04:40] LABS: PLATELET COUNT 132 10^3/uL (150-400)
[2017-11-19] MEDS: ACETAMINOPHEN 325 MG TAB PO SCH (06:38)
--- NOTE | 2017-11-19 07:07 | PDCARPN ---
Cardiology Progress Note Chief Complaint: SOB/CP Assessment/Plan: Assessment: s/p TAVR Plan: 11/18/17 07:08 doing great transfer to step down check echo continue plavix 11/19/17 07:06 doing well d/c home today f/u in 1 week Subjective: doing well Reviewed/Discussed With: multidisciplinary team Time Spent With Patient: 25 min Objective: Vital Signs (8 Hrs) Temp Pulse Resp BP Pulse Ox 11/19/17 04:00 37.1 C 80 19 128/65 H 96 Intake/Output (24 Hrs) 11/18/17 11/19/17 11/20/17 05:59 05:59 05:59 Intake Total 2420 1000 Output Total 1460 1475 Balance 960 -475 Intake: Oral (ml) 1970 1000 IV Intake (ml) 450 Output: Urine (ml) 1460 1475 Urinal 1460 1475 Other: Weight 106.594 kg Number of Voids Urinal 1 Result Diagrams: 11/19/17 03:56 11/19/17 03:56 - Physical Exam Constitutional: healthy appearing Eyes: PERRL, EOMI Ears, Nose, Mouth, Throat: moist mucous membranes Cardiovascular: regular rate and rhythm Peripheral Pulses: 1+: femoral (R), femoral (L) Respiratory: clear to auscultate bilat Gastrointestinal: normoactive bowel sounds Genitourinary: no suprapubic tenderness Skin: no rashes Musculoskeletal: no muscular tenderness Neurologic: AAOx3 Psychiatric: cooperative Lymph, Heme, Immunologic: no lymphadenopathy ICD10 Worksheet Patient Problems: Problems Problem Status Onset Aortic stenosis Acute CAD (coronary artery disease) Acute
--- NOTE | 2017-11-19 07:26 | GDS ---
[f rep st] DISCHARGE SUMMARY DISCHARGE DIAGNOSIS: Aortic stenosis. HOSPITAL COURSE: Briefly, this is a 77-year-old male with a history of morbid obesity, COPD, coronar y artery disease, critical aortic stenosis, who was deemed to be a suitable candidate for TAVR by CT surgery. The patient underwent successful transfemoral TAVR with a CoreValve Evolut PRO device on . Post procedure, the patient has done very well. He has been ambulating in the halls witho ut problems. His post procedure echo 24 hours later shows a normal ventricular function with normal TAVR with mild-moderate perivalvular leak. However, his blood pressure has been completely stable an d he has been actually feeling much better. Hence, we feel that the patient can be discharged later this morning with his home medications including aspirin and Plavix as the patient did have a recent coronary stent placed. He will follow up with me in the office in 1 week's time. /[id number]/MODL
[2017-11-19 07:50] VITALS: BP 113/63; PULSE 68; RESP 18; O2SAT 98
[2017-11-19] MEDS: NIACIN 500 MG TAB PO SCH (08:17)
[2017-11-19] MEDS: EZETIMIBE 10 MG TAB PO SCH (08:17)
[2017-11-19] MEDS: METOPROLOL SUCCINATE XR 50 MG TAB PO SCH (08:17)
[2017-11-19] MEDS: ASPIRIN 81 MG CHEWABLE TAB PO SCH (08:17)
[2017-11-19] MEDS: ATORVASTATIN CALCIUM 40 MG TAB PO SCH (08:18)
[2017-11-19] MEDS: CLOPIDOGREL BISULFATE 75 MG TAB PO SCH (08:18)
[2017-11-19] MEDS: LOSARTAN POTASSIUM 50 MG TAB PO SCH (08:18)
[2017-11-19] MEDS: DOXAZOSIN MESYLATE 4 MG TAB PO SCH (08:18)
[2017-11-19] MEDS: POTASSIUM CL 10 MEQ TAB PO SCH (08:18)
[2017-11-19] MEDS: MULTIVITAMINS 1 EACH TAB PO SCH (08:19)
[2017-11-19] MEDS: PANTOPRAZOLE SODIUM 40 MG TAB PO SCH (08:19)
--- NOTE | 2017-11-19 10:21 | ASMTLACE ---
[facility] Length of stay for Answers: 2 days current admission Acuity / Level of Answers: Yes Care: Did the patient have an inpatient admission? Comorbidities - select Answers: Chronic pulmonary disease all that apply Congestive heart failure Opioid dependence / Chronic pain Peripheral vascular disease # of Emergency department Answers: 0 visits in the last 6 months Score: 14 Date Signed: 11/19/2017 10:20 AM Electronically Signed By:Jennifer Christensen RN
--- NOTE | 2017-11-23 10:37 | ECHO ---
[email or web address] [address] [address] Main: [phone] Fax: Transesophageal Echocardiography Name: FABIÁN AYOUB MR#: [id number] Study Date: 11/17/2017 Study Time: 07:27 AM Date of : 1940 Age: 77 year(s) Height: 177.8 cm (70 in.) Weight: 104.33 kg (230 lb.) BSA: 2.22 m2 Gender: Male Examination: LISA Indication: TAVR Image Quality: Contrast: Requested by: Benito García Heart Rate: Rhythm: BP: / Procedure Staff Emergency Department Technician: Delmy Monge RDCS Reading Physician: Rosario Nguyen Requesting Provider: Benito García Measurements: Chambers Valvular Assessment AV/MV Valvular Assessment TV/PV Normal Normal Normal Name Value Range Name Value Range Name Value Range LVOTd 2.3 cm 2.3 cm mm AV meanP mmHg ( - ) ABELARDO (VTI): 2.0 cm ( - ) AR (PHT): 472 ms ( - ) MV meanP mmHg ( - ) MVA (Vmax): 2.4 m/s ( - ) Additional Measurements: Valvular Assessment AV/MV Name Value MV VTI: 37.60 cm AR Vmax: 3.65 cm/s Findings: Exam Comments: Baseline - EF normal/No pericardial effusion/mild/mod MR/AI Post Balloon - EF normal/mild AI 2/3 deployed - EF normal/MV VTI mean PG is 7mmHG./mild/mod MR/mild anterior AI jet visualized. Post deployment - LVOT 2.3cm. Successful TAVR deployment with AV mean gradient of 9mmHG and ABELARDO of 2.03cm2. Mild anterior jet of AI. AI P1/2t - 472ms. Normal EF with no pericardial Patient: FABIÁN AYOUB Study Date: 11/17/2017 Page 1 of 2 07:27 AM effusion.. l1n (No Signature Object) Patient: FABIÁN AYOUB Study Date: 11/17/2017 Page 2 of 2 07:27 AM [id number]
== END 2017-11-19 12:33 | disposition home or self-care (01) | DRG 267 ==
LOC: FCATH 06:08 → F2N 08:49 → F2W 11-18 16:42
PROVIDERS: ADMIT Internal Medicine Cardiovascular Disease; ATTEND Internal Medicine Cardiovascular Disease
PROC: 02RF38Z Replacement of Aortic Valve with Zooplastic Tissue, Percutaneous Approach (ICD-10-PCS; principal; 2017-11-17)
DX: I35.2 Nonrheumatic aortic (valve) stenosis with insufficiency (principal); Z00.6 Encounter for examination for normal comparison and control in clinical research program; E66.01 Morbid (severe) obesity due to excess calories; J44.9 Chronic obstructive pulmonary disease, unspecified; I25.10 Atherosclerotic heart disease of native coronary artery without angina pectoris; I10 Essential (primary) hypertension
CPT/HCPCS: 92610-GN; 97116-GP; 97161-GP; 97165-GO; 97535-GO; C1760; C1769; C1894; G8978-GP-CI; G8979-GP-CI; G8980-GP-CI; G8987-GO-CJ; G8988-GO-CI; G8989-GO-CI; G8996-GN-CH; G8997-GN-CH; G8998-GN-CH; J0153; J0282; J0690; J1170; J1265; J1644; J2001; J2250; J2260; J2704; J2720; J2930; J3010; J3475; J7060; P9041; Q9967

== ENCOUNTER → 2017-12-30 | Outpatient (CLI) | payer OTHER, MEDICARE | LOC: BHLMT 13:15 | PROVIDERS: ATTEND Internal Medicine Cardiovascular Disease | DX: I35.9 Nonrheumatic aortic valve disorder, unspecified (principal) | CPT/HCPCS: 93306-PO ==

== ENCOUNTER → 2018-09-02 | Outpatient (CLI) | payer OTHER, MEDICARE | LOC: BHFA 13:15 | PROVIDERS: ATTEND Internal Medicine Cardiovascular Disease | DX: I25.10 Atherosclerotic heart disease of native coronary artery without angina pectoris (principal); I35.9 Nonrheumatic aortic valve disorder, unspecified | CPT/HCPCS: 93306-PO ==

== ENCOUNTER → 2019-01-11 | Outpatient (CLI) | payer OTHER, MEDICARE | LOC: BHLMT 13:15 | PROVIDERS: ATTEND Internal Medicine Cardiovascular Disease | DX: I25.10 Atherosclerotic heart disease of native coronary artery without angina pectoris (principal); I35.9 Nonrheumatic aortic valve disorder, unspecified | CPT/HCPCS: 93306-PO ==